=== PATIENT | female | born 1970 | race Caucasian/White ===

== ENCOUNTER 2021-02-09 | Emergency (ER) | payer OTHER ==
[~2021-02-09] VITALS: Ht 160 cm; Wt 62.6 kg
--- NOTE | 2021-02-09 00:15 | NUR ---
PATIENT BIBSELF FOR MED CLEARANCE FOR VOLUNTARY PSYCH PLACEMENT. PATIENT STATES "FEELS DEPRESSED". PATIENT IS A/O X 4, RR EVEN AND UNLABORED, NO SIGNS OF SOB NOTED. PATIENT CONNECTED TO MONITOR.
[2021-02-09 01:06] LABS: BASOPHILS # (AUTO) 0.3 K/uL (0.0-0.2); BASOPHILS % (AUTO) 4.1 % (0.0-2.0); EOSINOPHILS % (AUTO) 2.4 % (0.0-6.0); HEMATOCRIT 48 % (33-45); HEMOGLOBIN 15.8 g/dL (11.5-14.8); LYMPHOCYTES # (AUTO) 2.1 K/uL (0.8-4.8); LYMPHOCYTES % (AUTO) 30.6 % (20.0-44.0); MEAN CORPUSCULAR HGB CONC 33 g/dl (31.0-36.0); MEAN CORPUSCULAR VOLUME 98 fL (82-100); MONOCYTES # (AUTO) 0.6 K/uL (0.1-1.30); MONOCYTES % (AUTO) 8.9 % (2.0-12.0); NEUTROPHILS # (AUTO) 3.8 K/uL (1.8-8.9); PLATELET COUNT (AUTO) 292 K/uL (150-450); RED BLOOD CELL COUNT(AUTO) 4.93 MIL/uL (4.0-5.2)
[2021-02-09 01:13] LABS: BILIRUBIN,URINE Negative (NEGATIVE); COLOR,URINE YELLOW (YELLOW); LEUKOCYTE ESTERASE ,URINE Negative (NEGATIVE); NITRITE, URINE Negative (NEGATIVE); PH,URINE 5.5 (5.0-8.0); PROTEIN,URINE Negative (NEGATIVE); UGLUCOSE >=1000 mg/dL (NEGATIVE); UROBILINOGEN,URINE 0.2 EU/dL (0.2)
[2021-02-09 01:26] LABS: ACETAMINOPHEN 0 ug/ml (10-30); ALANINE AMINOTRANSFERASE 21 U/L (12-78); ALBUMIN 3.4 g/dL (3.4-5.0); ALCOHOL, BLOOD < 3 mg/dL (0-0); ALKALINE PHOSPHATASE 111 U/L (46-116); ASPARTATE AMINOTRANSFERASE 11 U/L (15-37); BILIRUBIN,DIRECT 0.1 mg/dL (0.0-0.2); BILIRUBIN,TOTAL 0.2 mg/dL (0.2-1.0); CALCIUM, SERUM 9.1 mg/dL (8.5-10.1); CARBON DIOXIDE 27 mmol/L (21-32); CHLORIDE 97 mmol/L (98-107); POTASSIUM 3.7 mmol/L (3.5-5.1); SODIUM SERUM 134 mmol/L (136-145); TOTAL PROTEIN, SERUM 7.7 g/dL (6.4-8.2); UREA NITROGEN, BLOOD 14 mg/dL (7-18)
[2021-02-09 01:27] LABS: GLUCOSE 612 mg/dL (74-106)
[2021-02-09] MEDS ORDERED: INSULIN REGULAR, HUMAN 100 UNIT/ML 10 ML VIAL IV ONE ×4 (01:30→11:30)
[2021-02-09] MEDS ORDERED: IV NS 0.9% 500 ML BAG IV ONE ×3 (01:30→06:00)
[2021-02-09] MEDS ORDERED: INSULIN REGULAR, HUMAN 100 UNIT/ML 10 ML VIAL ONE (01:54)
--- NOTE | 2021-02-09 03:11 | NUR ---
BS NOTED AT 398
--- NOTE | 2021-02-09 05:45 | NUR ---
FACESHEET AND CLINICALS FAXED TO [facility].
--- NOTE | 2021-02-09 08:27 | NUR ---
BS 243, PATIENT RESTING, NO DISTRESS NOTED. NEEDS ATTENDED.
--- NOTE | 2021-02-09 09:21 | NUR ---
FOLLOWED UP FOR SO [facility] INTAKE AND SPOKE WITH ART. [facility] WILL NOT ACCEPT PT UNTIL BLOOD GLUCOSE IS BELOW 200.
[2021-02-09] MEDS ORDERED: METFORMIN 500 MG TABLET ONE (11:20)
[2021-02-09] MEDS ORDERED: METFORMIN 850 MG TABLET PO ONE (11:30)
--- NOTE | 2021-02-09 11:35 | NUR ---
CALLED [facility] AND SPOKE WITH ISADORA. ASSIGNED A BED A JOSE GABRIEL. THEY ARE WAITING FOR LOWER BLOOD GLUCOSE
--- NOTE | 2021-02-09 12:39 | NUR ---
BS 198
--- NOTE | 2021-02-09 12:47 | NUR ---
FAXED [facility] NEW BLOOD GLUCOSE RESULTS
--- NOTE | 2021-02-09 14:30 | NUR ---
PER PATIENT, SHE'S C/O SUICIDAL IDEATION W/ A PLAN TO CRASH HER CAR.
--- NOTE | 2021-02-09 14:41 | NUR ---
PATIENT A/OX4, BREATHING EVEN AND UNLABORED, NO SOB NOTED. NEEDS ATTENDED.
--- NOTE | 2021-02-09 14:55 | NUR ---
ACCEPTED AT [facility] [address] LEWIS CALL [phone] EXT [phone] ]
--- NOTE | 2021-02-09 15:06 | NUR ---
SET UP S TRANSPORT FOR CALL THE CAR, SPOKE WITH [employer]. CONFIRMATION NUMBER IS [id number]. THEY WILL CALLBACK WITH
[2021-02-09 15:34] VITALS: BP 129/78
--- NOTE | 2021-02-09 15:44 | NUR ---
REPORT GIVEN TO [place]ERRY [place] FOR DANIEL.
--- NOTE | 2021-02-09 16:13 | NUR ---
CALL THE CAR SET UP [facility] FOR [phone].
--- NOTE | 2021-02-09 16:54 | NUR ---
REPORT GIVEN TO [employer] LEADER. PATIENT A/OX4, BREATHING EVEN AND UNLABORED, NO SOB NOTED. NEEDS ATTENDED.
--- NOTE | 2021-02-09 17:17 | NUR ---
PATIENT TRANSFERRED TO [facility] IN STABLE CONDITION.
== END 2021-02-09 17:18 ==
LOC: ER 00:24
DX: F32.9 Major depressive disorder, single episode, unspecified (principal); E11.65 Type 2 diabetes mellitus with hyperglycemia; Z20.822 Contact with and (suspected) exposure to COVID-19
CPT/HCPCS: 36415; 80048; 80076; 80143; 80307; 80320; 81003; 82962 ×6; 84703; 85025; 87426; 96361; 96374; 96376; 99285; C9803; J1815; G0480